=== PATIENT | male | born 1950 | race Caucasian/White ===

== ENCOUNTER 2016-11-20 17:17 | Emergency (ER) | payer BC, MEDICARE ==
--- NOTE | ~2016-11-20 | CON ---
PATIENT'S NAME: DAMON HUGO [facility] AGE: 66 Y [address] ROOM: [place] [address] LOCATION: [facility] ADMIT DATE: 11/20/2016 Consultation DISCHARGE DATE: 11/20/2016 FAMILY PHYSICIAN: Dianelys Kendrick ATTENDING PHYSICIAN: Jeremy Ty REASON FOR CONSULTATION: Assessment for admission. HISTORY OF PRESENT ILLNESS: A 66-year-old gentleman with a past medical history of coronary artery disease and thyroid carcinoma status post removal and on suppressive thyroid replacement therapy, presented to the emergency department after he started having abdominal pain, which is located in the epigastrium, 8/10, sharp in character, no radiation, no aggravating factors, alleviated with morphine in the emergency department, started after eating meal, never had these symptoms before, progressive in nature; associated with pain on deep breathing, not associated with any chest pressure, diaphoresis, nausea, vomiting, or dizziness. He did have normal bowel movements today without any darkening of the blood. No constipation, diarrhea, or extremity swelling reported. On further inquiry, he denied any palpitation, any cough, sputum production, fever, or chills. He says his pain is gone right now. Does not report any other issues at this point. REVIEW OF SYSTEMS: All other systems reviewed and were negative except as mentioned in the HPI. ALLERGIES: NO KNOWN DRUG ALLERGIES. PAST MEDICAL HISTORY: 1. Coronary artery disease status post stent placement. 2. Thyroid carcinoma. 3. Prostatic hyperplasia. 4. Hypertension. MEDICATIONS: Being reconciled right now. FAMILY HISTORY: Positive for premature coronary artery disease in dad. Mother of pancreatic cancer. SOCIAL HISTORY: Never a smoker. No alcohol or drug abuse. 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 PATIENT'S NAME: DAMON HUGO [facility] AGE: 66 Y [address] ROOM: [place], [place] [address] LOCATION: [facility] ADMIT DATE: 11/20/2016 Consultation DISCHARGE DATE: 11/20/2016 FAMILY PHYSICIAN: Dianelys Kendrick ATTENDING PHYSICIAN: Jeremy Ty PHYSICAL EXAMINATION: VITAL SIGNS: Blood pressure 147/70, heart rate of 68, saturating 95% on room air, respiratory rate of 16. GENERAL: No acute distress. Alert and oriented x3. HEENT: Head: Atraumatic, normocephalic. Eyes: Nonicteric. No pallor. Oropharynx, moist mucous membranes. CARDIOVASCULAR: S1, S2. No murmurs, gallops, or rubs. LUNGS: Clear to auscultation bilaterally. ABDOMEN: Soft, nontender, nondistended. Bowel sounds present. EXTREMITIES: No clubbing, cyanosis, or edema. PSYCH: Normal affect, mood, and speech. NEURO: Cranial nerves 2 through 12 intact. No motor or sensory deficit noted. MUSCULOSKELETAL: No muscle tenderness or joint swelling noted. SKIN: No rashes or blemishes noted. LABORATORY WORK: All the lab work done in the emergency department including a CBC, BMP, lactate, and initial troponin levels were negative. A CAT scan of the abdomen was done, which did not reveal any acute findings, but did reveal multiple lymph nodes in the right pelvis, which are suggestive of a malignant process, likely from the prostate. ASSESSMENT AND PLAN: 1. Acute abdominal pain, likely gastric or duodenal etiology, relieved with morphine and a GI cocktail in the hospital. It was discussed with the patient to get admitted to the hospital for observation for this abdominal pain, but the patient wanted to leave and reported that he will be back to emergency department if he develops any further abdominal pain. 2. Abdominal lymphadenopathy/pelvic. It was discussed in length with the patient about these lymph nodes. I did also talk to Dr. Aguilar about it. The next process would be to biopsy of this patient and Dr. Aguilar thinks that these are very amenable to CT-guided biopsy. It was also discussed with Dr. Hernadez, the ER physician, and he is going to place order for Interventional Radiology centralized scheduling for this biopsy. The result of this will be sent to the primary care physician who is nurse practitioner, Dianelys Kendrick. Based on those biopsy results, further care can be carried out. All the risks and benefits of leaving the hospital were discussed with the patient. The patient is a reliable person in terms of followup, and he lives in [place] 3 minutes from the hospital. Daughter and other family members were also present and they stated they will bring him back if he develops any pain. It was discussed with the emergency physician, and we both agreed to send the patient home after the scheduling of his lymph node biopsy and GI cocktail. If further pain PATIENT'S NAME: BETHELDAMON [facility] AGE: 66 Y [address] ROOM: [place] [address] LOCATION: [facility] ADMIT DATE: 11/20/2016 Consultation DISCHARGE DATE: 11/20/2016 FAMILY PHYSICIAN: Dianelys Kendrick ATTENDING PHYSICIAN: Jeremy Ty, he needs to return to the emergency department. MD HEAVENLY ROGERS/bradl /[id number] d: 11/21/16 0209 t: 11/25/16 0740, CONSULTATION REPORT
--- NOTE | ~2016-11-20 | ER ---
PATIENT'S NAME: DAMON ARRINGTON [facility] AGE: 66 Y [address] ROOM: [place] [address] LOCATION: ED ADMIT DATE: 11/20/2016 ER/Outpatient Report DISCHARGE DATE: 11/20/2016 FAMILY PHYSICIAN: Dianelys Kendrick ATTENDING PHYSICIAN: Jeremy Ty CHIEF COMPLAINT: Epigastric pain. HISTORY OF PRESENT ILLNESS: I saw this patient in conjunction with the resident, Dr. Yany Contreras, please see her dictation for complete details. Briefly, Mr. Arrington noticed around 2 p.m. about an hour after he ate that he had severe epigastric pain. The pain is stabbing in nature, located centrally and does not really radiate. He has never really had anything like this before exactly. He has a history of heart attack with stenting, but is otherwise feeling okay from that standpoint. He is a nonsmoker and occasionally had some alcohol. In any case, the patient was given a physical exam which was concerning for epigastric pain. Based on his history, there was concern for hepatobiliary pancreatic GI and cardiac etiologies. He was given morphine for his pain and fluids. Serum lactate is 1.4. CBC is without appreciable abnormality. EKG reveals sinus rhythm with no acute ischemic changes, but signs of former ischemia with inversion of T-waves in II, III. The remainder of the labs and a CT of the abdomen and chest x-ray are pending. Mr. Arrington would be at risk for several different pathologies. Workup has been initiated for pain control. Morphine was initiated as well. Transition of care to Dr. Hernadez at 1800 hours to follow up labs and re-evaluation and disposition appropriately. MD FABY MARTINEZ/zay /[id number] d: 11/21/16 1247 t: 11/26/16 0641, OUTPATIENT REPORT
--- NOTE | ~2016-11-20 | ER ---
PATIENT'S NAME: DAMON HUGO [facility] AGE: 66 Y [address] ROOM: [place] [address] LOCATION: [facility] ADMIT DATE: 11/20/2016 ER/Outpatient Report DISCHARGE DATE: 11/20/2016 FAMILY PHYSICIAN: Dianelys Kendrick ATTENDING PHYSICIAN: Jeremy Moon Time of Arrival: 1717. Time of Evaluation: 1720. CHIEF COMPLAINT: Epigastric pain. HISTORY OF PRESENT ILLNESS: This is a 66-year-old male, past medical history including coronary artery disease status post stents x2 as well as hypertension who presented to the ED with epigastric abdominal pain that started around 2 p.m. this afternoon. He reports that just prior to this he had eaten a ham sandwich with some [employer] when he developed the pain. The pain is sharp in nature and has continued to get worse throughout the day. He is feeling nauseous which he thinks is related to the pain. He has had some chills and has felt mildly dizzy which he also attributes to the pain. Did have a bowel movement that reports was not loose in nature. Denies constipation. Otherwise, no numbness, tingling, or weakness in his arms or legs. Has not taken anything yet for the pain. Currently, rates the pain at a 7/10. Has not vomited. PAST MEDICAL HISTORY: Coronary artery disease status post stenting x2 and hypertension. History of thyroid cancer status post total thyroidectomy. SOCIAL HISTORY: No smoking or illicit drug use. A glass of wine a couple times per week. Lives at home with his . MEDICATIONS: 1. Amlodipine. 2. Metoprolol. 3. Levothyroxine. 4. Lovastatin. 5. Water pill. REVIEW OF SYSTEMS: All review of systems were reviewed by me and are negative with the exception of that listed in the HPI. PHYSICAL EXAMINATION: PATIENT'S NAME: DAMON HUGO [facility] AGE: 66 Y [address] ROOM: [place] [address] LOCATION: [facility] ADMIT DATE: 11/20/2016 ER/Outpatient Report DISCHARGE DATE: 11/20/2016 FAMILY PHYSICIAN: Dianelys Kendrick ATTENDING PHYSICIAN: Jeremy Moon VITAL SIGNS: Blood pressure was 147/84, pulse 65, respirations 20, 96% saturation on room air. GENERAL: This is a 66-year-old male appearing his stated age in moderate distress from pain. HEENT: Pupils equal, round, reactive to light. Patent airway. NECK: Supple. CARDIOVASCULAR: Regular rate and rhythm. LUNGS: Clear to auscultation bilaterally. ABDOMEN: Bowel sounds are present but hypoactive. Severe tenderness to palpation in the epigastrium with a positive Hackett's. Does have tenderness in the epigastrium when palpating other areas of the abdomen. No rebound rigidity or guarding. EXTREMITIES: No edema noted. NEURO: Grossly intact. LABORATORY DATA AND X-RAYS: Labs ordered. CBC, UA, CMS, lactate, amylase, lipase, troponin. Chest x-ray and CT of the abdomen and pelvis are all pending at this time. EKG showing a junctional rhythm with some occasional SVT complexes. Right bundle-branch block. Left anterior fascicular block as well. IMPRESSION: Epigastric abdominal pain. Currently undergoing evaluation. EMERGENCY DEPARTMENT COURSE: The patient is currently receiving 4 mg IV morphine as well as 1 L bolus of normal saline while awaiting the rest of the lab results. We will make further management decisions at that time. The patient will be handed over to Dr. Hernadez for further care. KATLYN WORTHINGTON MD FOR JEREMY MOON MD CW/modl /[id number] I have seen and evaluated this patient personally. I have reviewed the plan of care as noted above and have dictated a short note as well. Jeremy Moon MD d: 11/20/16 2321 t: 11/26/16 0647, OUTPATIENT REPORT
--- NOTE | ~2016-11-20 | ER ---
PATIENT'S NAME: DAMON HUGO [facility] AGE: 66 Y [address] ROOM: [place] [address] LOCATION: ED ADMIT DATE: 11/20/2016 ER/Outpatient Report DISCHARGE DATE: 11/20/2016 FAMILY PHYSICIAN: Dianelys Kendrick ATTENDING PHYSICIAN: Jeremy Ty HISTORY OF PRESENT ILLNESS: This patient is a 66-year-old male who presented with severe mid upper abdominal pain. Pain started around 1400 hours this afternoon. The patient came to the emergency room for evaluation. The patient was seen by Dr. Ty. See Dr. Ty's dictation in regard to the chief complaint, history of present illness, past medical history, physical exam, and laboratory studies. Dr. Ty transferred the patient's care over to me at shift change. Dr. Ty asked me to follow up with the patient's remaining lab study results, x-ray study results, CT scan of the abdomen and pelvis study results, final diagnosis, and treatment plan. The patient's chest x-ray showed cardiomegaly, but no acute infiltrate or acute lung changes. We will review x-ray with the radiologist. EKG showed PACs, right bundle, old anteroseptal changes, possible lateral ischemic changes. LABORATORY DATA: Urinalysis was clear. Lactate was normal at 1.4. CMS was normal except for a slightly low potassium of 3.6, elevated glucose of 144, amylase and lipase were normal, troponin was normal. White count 6700, 47 segs, 36 lymphs, 13 monos, 3 eos, 1 baso, hemoglobin 15.5, hematocrit 42.3, and platelet count 217,000. EMERGENCY DEPARTMENT COURSE: I did go ahead and do a CT scan of the abdomen and pelvis with IV contrast. I did give the patient fluid bolus of 1 L. Radiology report showed nothing acute. He did have some large unusual lymph nodes in the right pelvis, suggestive of malignancy. He also had enlarged prostate. No free air or free fluid. No other solid organ abnormalities of the abdomen and pelvis. There are no bony changes. See Radiology dictated transcribed report. I did give the patient morphine for pain, IV normal saline fluids, and oral GI cocktail. I did talk with Dr. Fierro, hospitalist. Dr. Fierro did come down and did visit with the patient. The patient's pain did resolve, although I thought he should stay and be evaluated for his pelvic nodes, he did not want to stay and wanted do it as an outpatient. Dr. Fierro agreed that he was okay to do that and I was okay with that. The patient will get a CT-guided biopsy of the enlarged right pelvic nodes. IMPRESSION: 1. Mid upper abdominal pain, etiology undetermined, most likely secondary to gastritis or duodenitis. PATIENT'S NAME: DAMON HUGO [facility] AGE: 66 Y [address] ROOM: [place] [address] LOCATION: [facility] ADMIT DATE: 11/20/2016 ER/Outpatient Report DISCHARGE DATE: 11/20/2016 FAMILY PHYSICIAN: Dianelys Kendrick ATTENDING PHYSICIAN: Jeremy Ty 2. Enlarged right pelvic nodes, need to consider possibility of malignancy. 3. Prostatic hypertrophy. 4. Atherosclerotic ischemic heart disease with coronary artery disease. 5. Hypertension. PLAN: The patient discharged from the emergency department. Continue present home medications and care. Fluids and diet as tolerated. Avoid caffeine; nicotine; alcohol; spicy, greasy, fried foods for 7 to 10 days. We will schedule the patient for a CT-guided needle biopsy of the right pelvic lymph nodes. The patient is to follow up with personal physician in 5 to 7 days for followup exam and to get report of the biopsy. MD SANDEE HATFIELD/zay /[id number] d: 11/21/16 0146 t: 11/21/16 1817, OUTPATIENT REPORT
[2016-11-20 17:51] LABS: BASOPHIL % 0.6 %; EOSINOPHIL # 0.2 K/uL (0.0-0.5); HEMATOCRIT 42.3 % (37.0-53.0); HEMOGLOBIN 15.5 g/dL (11.0-16.0); IMMATURE GRANULOCYTE % 0.3 %; LYMPHOCYTE # 2.4 K/uL (0.8-4.0); LYMPHOCYTE % 36.4 %; MCH 30.8 pg (27.0-34.0); MCHC 36.6 gm/dL (32.0-36.5); MCV 83.9 fl (83.0-98.0); MONOCYTE # 0.9 K/uL (0.0-1.0); MONOCYTE % 12.9 %; MPV 8.9 fl (9.4-12.4); NEUTROPHIL # (ANC) 3.1 K/uL (1.4-9.0); NEUTROPHIL % 46.8 %; NRBC % 0 /100WBC (0-0.00); PLATELET COUNT 217 K/uL (150-450); RBC 5.04 M/uL (3.50-5.50); RDW-CV 12.4 % (11.9-14.6); WBC 6.7 K/uL (4.0-11.0)
[2016-11-20 18:13] LABS: ALBUMIN 3.2 gm/dL (3.5-5.0); ALK PHOS 58 IU/L (33-138); ALT 53 IU/L (12-78); ANION GAP 11.6 (10.0-19.0); AST 34 IU/L (10-40); BLOOD UREA NITROGEN 18 mg/dL (6-24); CALCIUM 8.5 mg/dL (8.5-10.5); CHLORIDE 110 mMol/L (96-110); CO2 22 mMol/L (22-32); CREATININE 1.3 mg/dL (0.6-1.3); POTASSIUM 3.6 mMol/L (3.7-5.1); SODIUM 140 mMol/L (135-145); TOTAL BILIRUBIN 0.9 mg/dL (0.0-1.5); TOTAL PROTEIN 6.7 g/dL (6.0-8.4)
[2016-11-20 19:37] LABS: BILIRUBIN URINE NEGATIVE (NEGATIVE); BLOOD URINE NEGATIVE /UL (NEGATIVE); COLOR URINE YELLOW (YELLOW); GLUCOSE URINE NEGATIVE (NEGATIVE); KETONE URINE NEGATIVE (NEGATIVE); LEUKOCYTES URINE NEGATIVE /UL (NEGATIVE); NITRITE URINE NEGATIVE (NEGATIVE); PROTEIN URINE NEGATIVE (NEGATIVE); TURBIDITY URINE CLEAR (CLEAR); UROBILINOGEN URINE NORMAL (NORMAL)
[2016-11-22] MEDS ORDERED: TOPROL XL25 MG PO (13:54)
[2016-11-22] MEDS ORDERED: NORVASC10 MG PO (13:54)
[2016-11-22] MEDS ORDERED: LEVOTHROID(SY175 MCG PO (13:55)
[2016-11-22] MEDS ORDERED: TRIAMTERENE-HC1 EACH PO (13:55)
[2016-11-22] MEDS ORDERED: FISH OIL 1,0001 EAC1 PO (13:56)
[2016-11-22] MEDS ORDERED: PROSTATE PQ TA1 EACH PO (13:56)
[2016-11-22] MEDS ORDERED: THERA-VITE W/ B1 TAB PO (13:56)
[2016-11-22] MEDS ORDERED: PREVACID30 M1 PO (13:57)
== END 2016-11-20 22:08 | disposition disaster alternative care site (69) ==
LOC: GMED 17:17
PROVIDERS: Emergency Medicine
DX: R10.13 Epigastric pain (principal); R59.0 Localized enlarged lymph nodes; I25.10 Atherosclerotic heart disease of native coronary artery without angina pectoris; I10 Essential (primary) hypertension; N40.0 Benign prostatic hyperplasia without lower urinary tract symptoms; Z85.850 Personal history of malignant neoplasm of thyroid; Z79.899 Other long term (current) drug therapy
CPT/HCPCS: J2270; J7030; Q9967

== ENCOUNTER → 2016-11-27 | Outpatient (CLI) | payer BC, MEDICARE ==
[~2016-11-27] MED LIST: FISH OIL 1,0001 EAC1 PO; LEVOTHROID(SY175 MCG PO; NORVASC10 MG PO; PREVACID30 M1 PO; PROSTATE PQ TA1 EACH PO; THERA-VITE W/ B1 TAB PO; TOPROL XL25 MG PO; TRIAMTERENE-HC1 EACH PO
[2016-11-27 14:01] LABS: BASOPHIL % 0.5 %; EOSINOPHIL # 0.2 K/uL (0.0-0.5); EOSINOPHIL % 2.1 %; HEMATOCRIT 43.3 % (37.0-53.0); HEMOGLOBIN 15.3 g/dL (11.0-16.0); IMMATURE GRANULOCYTE % 0.3 %; LYMPHOCYTE # 1.6 K/uL (0.8-4.0); LYMPHOCYTE % 20.4 %; MCH 30.1 pg (27.0-34.0); MCHC 35.3 gm/dL (32.0-36.5); MCV 85.2 fl (83.0-98.0); MONOCYTE # 0.7 K/uL (0.0-1.0); MONOCYTE % 9.1 %; MPV 8.7 fl (9.4-12.4); NEUTROPHIL # (ANC) 5.2 K/uL (1.4-9.0); NEUTROPHIL % 67.6 %; NRBC % 0 /100WBC (0-0.00); PLATELET COUNT 227 K/uL (150-450); RBC 5.08 M/uL (3.50-5.50); RDW-CV 12.6 % (11.9-14.6); WBC 7.7 K/uL (4.0-11.0)
== END | disposition disaster alternative care site (69) ==
LOC: GOPD 11-22
PROVIDERS: Emergency Medicine
PROC: BQ20ZZZ Computerized Tomography (CT Scan) of Right Hip (ICD-10-PCS; principal; 2016-11-27)
PROC: 07BC3ZX Excision of Pelvis Lymphatic, Percutaneous Approach, Diagnostic (ICD-10-PCS; 2016-11-27)
DX: R59.0 Localized enlarged lymph nodes (principal); C96.9 Malignant neoplasm of lymphoid, hematopoietic and related tissue, unspecified; C79.89 Secondary malignant neoplasm of other specified sites
CPT/HCPCS: J2001; J2250; J3010